=== PATIENT | female | born 1985 | race Caucasian/White ===

== ENCOUNTER 2017-10-20 21:35 | Emergency (ER) | payer OTHER ==
[2017-10-20 21:49] VITALS: BP 138/85; TEMP 98.9
[2017-10-20] MEDS ORDERED: CHLORHEXIDINE GLUCONATE 4 % 15 ML UD TOP ONE (21:52)
--- NOTE | 2017-10-20 22:00 | ED.PDOC ---
History of Present Illness - General Chief Complaint: Bite: Animal/Insect/Human Stated Complaint: spider bite Time Seen by Provider: 10/20/17 21:53 Source: patient Exam Limitations: no limitations - History of Present Illness Initial Comments: Patient presents after being bitten by a mercedes spider on the top of the left foot. She saw it bite her and her grandmother brought the insect to the E[facility]. She has pain on the top of the left foot at the bite site but no numbness. She has full sensation and movement of the foot. No known allergies to any insects. Bite happened 30 min [facility] No other complaints. Timing/Duration: 1/2 hour Severity: mild Improving Factors: nothing Worsening Factors: nothing Associated Symptoms: denies symptoms Allergies/Adverse Reactions: Allergies NO KNOWN ALLERGY Allergy (Verified 10/20/17 21:46) Home Medications: Ambulatory Orders Amoxicillin & Pot Clavulanate [Augmentin Tab] 10/20/17 Review of Systems - Review of Systems Constitutional: States: no symptoms reported EENTM: States: no symptoms reported Respiratory: States: no symptoms reported Cardiology: States: no symptoms reported Gastrointestinal/Abdominal: States: no symptoms reported Genitourinary: States: no symptoms reported Skin: States: see HPI Neurological: States: no symptoms reported Endocrine: States: no symptoms reported Hematologic/Lymphatic: States: no symptoms reported Past Medical History (General) - Patient Medical History Hx Diabetes: No - Vaccination History Hx Tetanus, Diphtheria Vaccination: Yes - 2 yrs ago - Female History Patient is a Female of Child Bearing Age (10 -59 yrs old): Yes Family Medical History - Family History Father Family History: Unknown Physical Exam - Physical Exam General Appearance: Alert Respiratory: lungs clear Cardiovascular/Chest: normal peripheral pulses, regular rate, rhythm, no edema Gastrointestinal/Abdominal: normal bowel sounds, non tender, soft Extremity: other - 5/5 movement to dorsiflexion/plantarflexion/inversion/ eversion of left foot. 5/5 strength to flexion/extension of the toes. Full sensation over entire left foot. Capillary refill less than 2 second over entire left foot. Neurologic: no motor/sensory deficits Skin Exam: other - mild blanching erythema on the dorsum of the left foot. No edema. TTP. Progress - Progress Progress: 10/20/17 22:02 Care instructions give. Patient already taking Augmentin for streptococcal pharyngitis and has 5 more days left so no prophylactic abx indicated. Questions elicited and answered. Patient voiced understanding and agreement with the plan. Departure - Departure Clinical Impression: Spider bite Disposition: Discharge to Home or Self Care Condition: Good Departure Forms: ED Discharge - Pt. Copy, Patient Portal Self Enrollment Diet: resume usual diet Activity: increase activity as tolerated Home Medications: Ambulatory Orders Amoxicillin & Pot Clavulanate [Augmentin Tab] 10/20/17 Additional Instructions: Return to the E[facility] or your regular doctor if redness and swelling increase or for temperature above 100.4.
== END 2017-10-20 22:11 | disposition home or self-care (01) ==
LOC: ER 21:35
DX: T63.391A Toxic effect of venom of other spider, accidental (unintentional), initial encounter (principal); Y92.9 Unspecified place or not applicable